=== PATIENT | male | born 1955 | race African-American/Black ===

== ENCOUNTER 2017-04-04 17:21 | Inpatient (IN) | payer OTHER ==
[~2017-04-04] VITALS: Ht 185.4 cm; Wt 90.7 kg
[2017-04-04 19:39] LABS: BASOPHILS % 0.5 % (0.0-2.0); EOSINOPHILS % 1.9 % (0.0-5.0); HEMATOCRIT. 35.4 % (42.0-52.0); LYMPHOCYTES % 29.8 % (20.0-50.0); MEAN CORPUSCULAR HEMOGLOBIN 32.7 pg (28.0-32.0); MEAN CORPUSCULAR VOLUME 96.6 fL (80.0-94.0); MEAN PLATELET VOLUME 9.1 fl (7.4-10.4); MONOCYTES % 13.7 % (2.0-8.0); NEUTROPHILS % 54.1 % (40.0-76.0); PLATELET 171 x1000/uL (130-400); RED BLOOD CELL COUNT 3.66 mill/uL (4.7-6.1); RED CELL DISTRIBUTION WIDTH 13.6 % (11.6-14.6)
[2017-04-04 19:45] LABS: CLARITY URINE CLEAR (CLEAR); COLOR URINE DARK YELLOW (YELLOW); GLUCOSE URINE NEGATIVE (NEGATIVE); KETONES URINE 1+ (NEGATIVE); LEUKOCYTE ESTERASE URINE TRACE (NEGATIVE); NITRITE URINE NEGATIVE (NEGATIVE); OCCULT BLOOD URINE NEGATIVE (NEGATIVE); PROTEIN URINE 2+ (NEGATIVE); SPECIFIC GRAVITY URINE 1.024 (1.005-1.030)
[2017-04-04 19:51] LABS: CARBON DIOXIDE 14 mEq/L (21-32); CHLORIDE 108 mEq/L (98-107); ETHANOL BLOOD < 10 mg/dL
[2017-04-04 19:53] LABS: TROPONIN I < 0.02 ng/mL (0.00-0.04)
[2017-04-04 20:14] LABS: *AMPHETAMINES SCREEN URINE NEGATIVE (NEGATIVE); *BARBITURATES SCREEN URINE NEGATIVE (NEGATIVE); *BENZODIAZEPINES SCREEN URINE NEGATIVE (NEGATIVE); *COCAINE SCREEN URINE NEGATIVE (NEGATIVE); CANNABINOID URINE SCREEN PRESUMTIVE POSITIVE (NEGATIVE); METHADONE URINE SCREEN NEGATIVE (NEGATIVE); OPIATES URINE SCREEN NEGATIVE (NEGATIVE); PHENCYCLIDINE URINE SCREEN NEGATIVE (NEGATIVE)
[2017-04-04 23:10] VITALS: BP 91/50
[2017-04-04] MEDS ORDERED: LISI-604 PO (23:55)
[2017-04-04] MEDS ORDERED: HYDR25TA PO (23:55)
[2017-04-04] MEDS ORDERED: SPIR25TA4 PO (23:55)
[2017-04-04] MEDS ORDERED: LABE100T PO (23:55)
[2017-04-05] MEDS ORDERED: LORAZEPAM 2MG/ML CPJ IV PRN (01:30)
[2017-04-05] MEDS ORDERED: ONDANSETRON HCL 4MG/2ML VIAL IV PRN (01:30)
[2017-04-05] MEDS: SODIUM CHLORIDE 0.9% 1,000 ML IV SCH ×3 (01:54→16:58)
[2017-04-05 04:00] VITALS: BP 96/74
[2017-04-05 06:16] LABS: HEMATOCRIT. 32.5 % (42.0-52.0); HEMOGLOBIN. 10.9 g/dL (14.0-18.0); MEAN CORPUSCULAR HEMOGLOBIN 32.7 pg (28.0-32.0); MEAN CORPUSCULAR VOLUME 97.3 fL (80.0-94.0); MEAN PLATELET VOLUME 9.7 fl (7.4-10.4); PLATELET 158 x1000/uL (130-400); RED BLOOD CELL COUNT 3.34 mill/uL (4.7-6.1); RED CELL DISTRIBUTION WIDTH 13.8 % (11.6-14.6)
[2017-04-05 06:21] LABS: CARBON DIOXIDE 12 mEq/L (21-32); CHLORIDE 110 mEq/L (98-107)
[2017-04-05 08:00] VITALS: BP 99/65
[2017-04-05] MEDS: LABETALOL HCL 100MG TABLET PO SCH ×2 (08:49→21:29)
[2017-04-05] MEDS ORDERED: HYDROCHLOROTHIAZIDE 25MG TABLET PO SCH (09:00)
[2017-04-05] MEDS ORDERED: SPIRONOLACTONE 25MG TABLET PO SCH (09:00)
[2017-04-05] MEDS ORDERED: LISINOPRIL 20MG TABLET PO SCH (09:00)
[2017-04-05 10:11] LABS: CREATINE KINASE 344 IU/L (39-308)
[2017-04-05 12:00] VITALS: BP 93/49
[2017-04-05 14:27] LABS: PLATELET ESTIMATE NORMAL
[2017-04-05 16:00] VITALS: BP 134/81
[2017-04-05 20:00] VITALS: BP 111/62
[2017-04-06] VITALS: BP 92/50
[2017-04-06] MEDS: SODIUM CHLORIDE 0.9% 1,000 ML IV SCH ×4 (00:48→20:48)
[2017-04-06 04:00] VITALS: BP 113/67
[2017-04-06 06:17] LABS: BASOPHILS % 0.2 % (0.0-2.0); EOSINOPHILS % 2.2 % (0.0-5.0); HEMOGLOBIN. 10.5 g/dL (14.0-18.0); LYMPHOCYTES % 35.6 % (20.0-50.0); MEAN CORPUSCULAR HEMOGLOBIN 32.9 pg (28.0-32.0); MEAN PLATELET VOLUME 9.6 fl (7.4-10.4); MONOCYTES % 14.6 % (2.0-8.0); NEUTROPHILS % 47.4 % (40.0-76.0); PLATELET 169 x1000/uL (130-400); RED CELL DISTRIBUTION WIDTH 14.1 % (11.6-14.6)
[2017-04-06 06:53] LABS: PHOSPHORUS 4.2 mg/dL (2.5-4.9)
[2017-04-06 08:00] VITALS: BP 116/72
[2017-04-06] MEDS: LABETALOL HCL 100MG TABLET PO SCH ×2 (08:53→20:45)
[2017-04-06 10:06] LABS: ANTI-NUCLEAR ANTIBODIES DIRECT Positive (Negative)
[2017-04-06] MEDS ORDERED: SODIUM POLYSTYRENE SULFONATE 15 G/60 ML BOT PO NR (10:13)
[2017-04-06] MEDS: CITRIC ACID/SODIUM CITRATE SOLN 30ML UDC PO SCH ×3 (10:28→17:12)
[2017-04-06 10:54] LABS: BG CARBOXYHEMOGLOBIN 0.2 % (0.5-1.5); BG DEOXYHEMOGLOBIN 2.9 % (0.0-5.0); BG FRACTION INSPIRED OXYGEN 21; BG HCO3 ACT 12.3 mmol/L (22.0-26.0); BG METHEMOGLOBIN 0.4 % (0.0-1.5); BG OXYGEN SATURATION 97.1 % (92.0-98.5); BG OXYHEMOGLOBIN 96.5 % (94.0-97.0); BG PH 7.328 (7.350-7.450); BG PO2 105.2 mmHg (75.0-100.0); BG SAMPLE SITE RIGHT BRACHIAL; BG TOTAL HEMOGLOBIN 11.2 g/dL (12.0-18.0); BG VENT MODE ROOM AIR
[2017-04-06 12:00] VITALS: BP 106/59
[2017-04-06 15:09] LABS: ALBUMIN 3.6 g/dL (2.9-4.4); ALPHA-1-GLOBULIN 0.2 g/dL (0.0-0.4); ALPHA-2-GLOBULIN 0.9 g/dL (0.4-1.0); BETA GLOBULIN 0.8 g/dL (0.7-1.3); GAMMA GLOBULINS 1.7 g/dL (0.4-1.8); GLOBULIN TOTAL 3.5 g/dL (2.2-3.9); M-SPIKE Not Observed g/dL (Not Observed); TOTAL PROTEIN SERUM 7.1 g/dL (6.0-8.5)
[2017-04-06 16:00] VITALS: BP 130/89
[2017-04-06 20:00] VITALS: BP 124/65
[2017-04-07] VITALS: BP 114/73
[2017-04-07 00:11] VITALS: BP 114/73
[2017-04-07 04:00] VITALS: BP 147/81
[2017-04-07] MEDS: SODIUM CHLORIDE 0.9% 1,000 ML IV SCH ×2 (06:22→08:28)
[2017-04-07 06:25] LABS: HEMATOCRIT. 30.9 % (42.0-52.0); HEMOGLOBIN. 10.4 g/dL (14.0-18.0); MEAN CORPUSCULAR HEMOGLOBIN 32.8 pg (28.0-32.0); MEAN CORPUSCULAR VOLUME 96.9 fL (80.0-94.0); MEAN PLATELET VOLUME 9.4 fl (7.4-10.4); PLATELET 186 x1000/uL (130-400); RED BLOOD CELL COUNT 3.18 mill/uL (4.7-6.1); RED CELL DISTRIBUTION WIDTH 14.1 % (11.6-14.6)
[2017-04-07 07:13] LABS: PHOSPHORUS 3.4 mg/dL (2.5-4.9)
[2017-04-07 08:00] VITALS: BP 154/107
[2017-04-07] MEDS: CITRIC ACID/SODIUM CITRATE SOLN 30ML UDC PO SCH ×2 (08:29→13:00)
[2017-04-07] MEDS: LABETALOL HCL 100MG TABLET PO SCH (08:29)
[2017-04-07] MEDS ORDERED: SODIUM POLYSTYRENE SULFONATE 15 G/60 ML BOT PO NR (12:00)
[2017-04-07 12:31] LABS: PLATELET ESTIMATE NORMAL
[2017-04-07] MEDS ORDERED: MAGNESIUM 1 G PREMIX 100 ML IV NR (14:00)
[2017-04-07 14:53] VITALS: BP 136/96
[2017-04-07 16:56] LABS: COMPLEMENT C3 106 mg/dL (82-167)
== END 2017-04-07 17:00 | disposition home or self-care (01) | DRG 460 ==
LOC: ER 19:25 → 7WST 19:55 → EDBEDREQ 20:01 → ENRESERV 22:33
PROVIDERS: ADMIT Hospitalist; ATTEND Hospitalist
DX: N17.0 Acute kidney failure with tubular necrosis (principal); E87.2 Acidosis; E86.9 Volume depletion, unspecified; G40.89 Other seizures; I10 Essential (primary) hypertension; B19.20 Unspecified viral hepatitis C without hepatic coma; D64.9 Anemia, unspecified; F17.200 Nicotine dependence, unspecified, uncomplicated; Z60.2 Problems related to living alone; F12.90 Cannabis use, unspecified, uncomplicated; R80.9 Proteinuria, unspecified; Z82.49 Family history of ischemic heart disease and other diseases of the circulatory system
CPT/HCPCS: 36415; 36600; 70450; 76770; 80048; 80053; 80305; 81001; 82375; 82550; 82805; 82962; 83735; 84100; 84155; 84165; 84484; 85025; 86038; 86160; 99285; A6261; G0482; J3475; J7030

== ENCOUNTER 2017-09-13 23:24 | Emergency (ER) | payer OTHER ==
[~2017-09-13] VITALS: Ht 188 cm; Wt 90.0 kg
[~2017-09-13 23:24] MED LIST: HYDR25TA PO; LABE100T PO; LISI-604 PO; SPIR25TA4 PO
[2017-09-14 04:00] VITALS: BP 108/70
[2017-09-14] MEDS ORDERED: FOLIC ACID 1 MG, THIAMINE HCL 100 MG, MVI, ADULT NO.1 10 ML in DEXTROSE 5% WATER 1,000 ML IV ONE ×4 (04:45)
[2017-09-14] MEDS ORDERED: KETOROLAC 30MG/ML VIAL IV ONE (04:45)
[2017-09-14 04:57] LABS: BASOPHILS % 0.9 % (0.0-2.0); EOSINOPHILS % 2.7 % (0.0-5.0); HEMATOCRIT. 35.7 % (42.0-52.0); HEMOGLOBIN. 11.8 g/dL (14.0-18.0); LYMPHOCYTES % 26.5 % (20.0-50.0); MEAN CORPUSCULAR HEMOGLOBIN 30.6 pg (28.0-32.0); MEAN CORPUSCULAR VOLUME 92.6 fL (80.0-94.0); MEAN PLATELET VOLUME 8.4 fl (7.4-10.4); NEUTROPHILS % 60.9 % (40.0-76.0); PLATELET 303 x1000/uL (130-400); RED BLOOD CELL COUNT 3.86 mill/uL (4.7-6.1); RED CELL DISTRIBUTION WIDTH 14.7 % (11.6-14.6)
[2017-09-14 05:09] LABS: CARBON DIOXIDE 21 mEq/L (21-32); CHLORIDE 112 mEq/L (98-107); ETHANOL BLOOD 67 mg/dL
== END 2017-09-14 07:39 | disposition home or self-care (01) ==
LOC: ER 23:25
DX: F10.129 Alcohol abuse with intoxication, unspecified (principal); I10 Essential (primary) hypertension; G89.29 Other chronic pain; M79.605 Pain in left leg; M79.604 Pain in right leg; Y90.3 Blood alcohol level of 60-79 mg/100 ml
CPT/HCPCS: 36415; 80048; 85025; 99284; G0482; J3411; J3490; J7070; Z7610

== ENCOUNTER 2018-01-20 19:41 | Emergency (ER) | payer OTHER ==
[~2018-01-20] VITALS: Ht 182.9 cm; Wt 95.3 kg
[2018-01-20] MEDS ORDERED: KETOROLAC 30MG/ML VIAL IV STA (20:15)
[2018-01-20] MEDS ORDERED: SODIUM CHLORIDE 0.9% 1,000 ML IV ONE (20:15)
[2018-01-20 20:50] LABS: BASOPHILS % 1.2 % (0.0-2.0); EOSINOPHILS % 2.5 % (0.0-5.0); HEMATOCRIT. 38.3 % (42.0-52.0); HEMOGLOBIN. 12.8 g/dL (14.0-18.0); LYMPHOCYTES % 34.7 % (20.0-50.0); MEAN CORPUSCULAR VOLUME 96.1 fL (80.0-94.0); MEAN PLATELET VOLUME 8.6 fl (7.4-10.4); MONOCYTES % 16.1 % (2.0-8.0); NEUTROPHILS % 45.5 % (40.0-76.0); PLATELET 218 x1000/uL (130-400); RED BLOOD CELL COUNT 3.99 mill/uL (4.7-6.1); RED CELL DISTRIBUTION WIDTH 15.7 % (11.6-14.6)
[2018-01-20 20:52] LABS: CHLORIDE 111 mEq/L (98-107)
[2018-01-20 20:56] LABS: ETHANOL BLOOD 265 mg/dL
[2018-01-20] MEDS ORDERED: CLONIDINE 0.1MG TABLET PO ONE (21:00)
[2018-01-20 21:09] LABS: CLARITY URINE CLEAR (CLEAR); COLOR URINE YELLOW (YELLOW); KETONES URINE NEGATIVE (NEGATIVE); LEUKOCYTE ESTERASE URINE NEGATIVE (NEGATIVE); NITRITE URINE NEGATIVE (NEGATIVE); OCCULT BLOOD URINE 1+ (NEGATIVE); PH URINE 5.5 (4.5-8.0); PROTEIN URINE 2+ (NEGATIVE); SPECIFIC GRAVITY URINE 1.009 (1.005-1.030); UROBILINOGEN URINE 0.2 E.U./dL (0.2-1.0)
[2018-01-20 21:30] LABS: *AMPHETAMINES SCREEN URINE NEGATIVE (NEGATIVE); *BARBITURATES SCREEN URINE NEGATIVE (NEGATIVE); *BENZODIAZEPINES SCREEN URINE NEGATIVE (NEGATIVE); *COCAINE SCREEN URINE NEGATIVE (NEGATIVE); METHADONE URINE SCREEN NEGATIVE (NEGATIVE); OPIATES URINE SCREEN NEGATIVE (NEGATIVE); PHENCYCLIDINE URINE SCREEN PRESUMTIVE POSITIVE (NEGATIVE)
[2018-01-20 21:31] LABS: CANNABINOID URINE SCREEN PRESUMTIVE POSITIVE (NEGATIVE)
[2018-01-21 00:47] VITALS: BP 141/72
== END 2018-01-21 00:50 | disposition home or self-care (01) ==
LOC: ER 19:41
DX: T40.7X1A Poisoning by cannabis (derivatives), accidental (unintentional), initial encounter (principal); T40.991A Poisoning by other psychodysleptics [hallucinogens], accidental (unintentional), initial encounter; R40.4 Transient alteration of awareness; M13.862 Other specified arthritis, left knee; M13.861 Other specified arthritis, right knee; F10.129 Alcohol abuse with intoxication, unspecified; M19.90 Unspecified osteoarthritis, unspecified site; R94.31 Abnormal electrocardiogram [ECG] [EKG]; F12.10 Cannabis abuse, uncomplicated; Y90.8 Blood alcohol level of 240 mg/100 ml or more; M85.80 Other specified disorders of bone density and structure, unspecified site; G89.29 Other chronic pain; D64.9 Anemia, unspecified; F17.200 Nicotine dependence, unspecified, uncomplicated; Z59.0 Homelessness; Y92.488 Other paved roadways as the place of occurrence of the external cause
CPT/HCPCS: 36415; 71045; 73560; 80053; 80305; 81003; 83690; 84550; 85025; 93005; 96361; 96374; 99285; G0482; J1885; J7030; Z7610

== ENCOUNTER 2018-03-25 15:52 | Emergency (ER) | payer OTHER ==
[~2018-03-25] VITALS: Ht 170.2 cm; Wt 100.0 kg
[~2018-03-25 15:52] MED LIST changes: -HYDR25TA PO; -LABE100T PO; -SPIR25TA4 PO; +SPIR25TA6 PO
[2018-03-26 09:55] VITALS: BP 159/93
== END 2018-03-26 11:51 | disposition home or self-care (01) ==
LOC: ER 15:52
DX: S60.562A Insect bite (nonvenomous) of left hand, initial encounter (principal); S60.561A Insect bite (nonvenomous) of right hand, initial encounter; S10.86XA Insect bite of other specified part of neck, initial encounter; S90.869A Insect bite (nonvenomous), unspecified foot, initial encounter; I10 Essential (primary) hypertension; F17.200 Nicotine dependence, unspecified, uncomplicated; F12.10 Cannabis abuse, uncomplicated; W57.XXXA Bitten or stung by nonvenomous insect and other nonvenomous arthropods, initial encounter; Y93.89 Activity, other specified; Y92.89 Other specified places as the place of occurrence of the external cause; Y99.8 Other external cause status
CPT/HCPCS: 99283

== ENCOUNTER 2018-04-06 05:46 | Emergency (ER) | payer OTHER ==
[~2018-04-06] VITALS: Ht 185.4 cm; Wt 113.0 kg
[2018-04-06 05:53] VITALS: BP 168/90
[2018-04-06] MEDS ORDERED: DIPHENHYDRAMINE 25MG CAPSULE PO ONE (15:30)
[2018-04-06] MEDS ORDERED: PREDNISONE 20MG TABLET PO ONE (15:30)
== END 2018-04-06 15:45 | disposition home or self-care (01) ==
LOC: ER 05:46
DX: S80.862A Insect bite (nonvenomous), left lower leg, initial encounter (principal); S80.861A Insect bite (nonvenomous), right lower leg, initial encounter; S40.862A Insect bite (nonvenomous) of left upper arm, initial encounter; S40.861A Insect bite (nonvenomous) of right upper arm, initial encounter; L30.8 Other specified dermatitis; W57.XXXA Bitten or stung by nonvenomous insect and other nonvenomous arthropods, initial encounter; Y93.89 Activity, other specified; Y92.092 Bedroom in other non-institutional residence as the place of occurrence of the external cause; G89.29 Other chronic pain; M25.562 Pain in left knee; M25.561 Pain in right knee; I10 Essential (primary) hypertension; F17.210 Nicotine dependence, cigarettes, uncomplicated; Z87.828 Personal history of other (healed) physical injury and trauma
CPT/HCPCS: 99283; J7512; Q0163

== ENCOUNTER 2018-04-16 15:45 | Emergency (ER) | payer OTHER ==
[~2018-04-16] VITALS: Ht 185.4 cm; Wt 100.0 kg
[2018-04-16 15:53] VITALS: BP 146/87
[2018-04-16] MEDS ORDERED: DEXAMETHASONE 10 MG/ML VIAL IM ONE (19:15)
[2018-04-16] MEDS ORDERED: DIPHENHYDRAMINE 25MG CAPSULE PO ONE (19:30)
[2018-04-16] MEDS ORDERED: FAMOTIDINE 20MG TABLET PO ONE (19:45)
[2018-04-16] MEDS ORDERED: FAMOTIDINE 20MG TABLET PO SCH (21:00)
== END 2018-04-16 21:51 | disposition home or self-care (01) ==
LOC: ER 15:45
DX: S60.562A Insect bite (nonvenomous) of left hand, initial encounter (principal); S60.561A Insect bite (nonvenomous) of right hand, initial encounter; S30.861A Insect bite (nonvenomous) of abdominal wall, initial encounter; S20.362A Insect bite (nonvenomous) of left front wall of thorax, initial encounter; S20.361A Insect bite (nonvenomous) of right front wall of thorax, initial encounter; W57.XXXA Bitten or stung by nonvenomous insect and other nonvenomous arthropods, initial encounter; L50.9 Urticaria, unspecified; I10 Essential (primary) hypertension; F17.200 Nicotine dependence, unspecified, uncomplicated; Y93.89 Activity, other specified; Y92.89 Other specified places as the place of occurrence of the external cause; Y99.8 Other external cause status
CPT/HCPCS: 96372; 99283; J1100; Q0163

== ENCOUNTER 2018-05-15 13:29 | Emergency (ER) | payer OTHER ==
[~2018-05-15] VITALS: Ht 185.4 cm; Wt 100.0 kg
[2018-05-15 14:15] VITALS: BP 140/76
== END 2018-05-15 15:50 | disposition home or self-care (01) ==
LOC: ER 13:29
DX: T14.8XXA Other injury of unspecified body region, initial encounter (principal); I10 Essential (primary) hypertension; F17.200 Nicotine dependence, unspecified, uncomplicated; Z59.0 Homelessness; W57.XXXA Bitten or stung by nonvenomous insect and other nonvenomous arthropods, initial encounter; Y93.9 Activity, unspecified; Y92.89 Other specified places as the place of occurrence of the external cause
CPT/HCPCS: 99282

== ENCOUNTER 2018-05-28 06:36 | Emergency (ER) | payer OTHER ==
[~2018-05-28] VITALS: Ht 185.4 cm; Wt 100.0 kg
[2018-05-28] MEDS ORDERED: FLUORESCEIN SODIUM 1MG/STRIP OP ONE (07:00)
[2018-05-28] MEDS ORDERED: TETRACAINE 0.5% OPHTH DROPS 4ML OP ONE (07:00)
[2018-05-28] MEDS ORDERED: KETOROLAC 60MG/2ML VIAL IM ONE (07:00)
[2018-05-28 09:33] VITALS: BP 145/90
== END 2018-05-28 09:36 | disposition home or self-care (01) ==
LOC: ER 07:21
DX: S05.02XA Injury of conjunctiva and corneal abrasion without foreign body, left eye, initial encounter (principal); M25.562 Pain in left knee; M25.561 Pain in right knee; I10 Essential (primary) hypertension; F17.200 Nicotine dependence, unspecified, uncomplicated; X58.XXXA Exposure to other specified factors, initial encounter; Y93.89 Activity, other specified; Y92.89 Other specified places as the place of occurrence of the external cause; Y99.8 Other external cause status; Z98.890 Other specified postprocedural states
CPT/HCPCS: 96372; 99283; J1885

== ENCOUNTER 2018-06-22 22:54 | Emergency (ER) | payer OTHER ==
[~2018-06-22] VITALS: Ht 190.5 cm; Wt 100.0 kg
[2018-06-23] MEDS ORDERED: IBUPROFEN 800MG TABLET PO ONE (00:15)
[2018-06-23] MEDS ORDERED: TETANUS, DIPHTHERIA, PERTUSSIS VAC/PF 0.5ML (>7YR OLD) IM ONE (00:15)
[2018-06-23] MEDS ORDERED: CEFAZOLIN 1000MG PREMIX 50 ML IV ONE (00:30)
[2018-06-23] MEDS ORDERED: BACITRACIN ZINC OINT UDPKT TOP ONE ×2 (01:15→01:45)
[2018-06-23] MEDS ORDERED: LIDOCAINE HCL/PF 1% 10 MG/ML 5ML VIAL IJ ONE (01:45)
[2018-06-23 02:45] VITALS: BP 144/88
== END 2018-06-23 02:49 | disposition home or self-care (01) ==
LOC: ER 23:10
DX: S61.412A Laceration without foreign body of left hand, initial encounter (principal); I10 Essential (primary) hypertension; Z79.899 Other long term (current) drug therapy; W26.8XXA Contact with other sharp object(s), not elsewhere classified, initial encounter; Y93.89 Activity, other specified; Y92.89 Other specified places as the place of occurrence of the external cause; Y99.8 Other external cause status
CPT/HCPCS: 12004; 73130; 90471; 90715; 96365; 99284; A4217; J0690; J3490; Z7610

== ENCOUNTER 2018-06-24 15:41 | Emergency (ER) | payer OTHER ==
[~2018-06-24] VITALS: Ht 175.3 cm; Wt 110.0 kg
[2018-06-24] MEDS ORDERED: KETOROLAC 60MG/2ML VIAL IM ONE (20:30)
[2018-06-24 20:43] VITALS: BP 124/80
== END 2018-06-24 20:43 | disposition home or self-care (01) ==
LOC: ER 16:15
DX: M25.511 Pain in right shoulder (principal); M25.561 Pain in right knee; I10 Essential (primary) hypertension; F99 Mental disorder, not otherwise specified; Z59.0 Homelessness; W01.0XXA Fall on same level from slipping, tripping and stumbling without subsequent striking against object, initial encounter; Y93.89 Activity, other specified; Y92.488 Other paved roadways as the place of occurrence of the external cause
CPT/HCPCS: 96372; 99283; J1885

== ENCOUNTER 2018-08-26 15:53 | Inpatient (IN) | payer OTHER ==
[~2018-08-26] VITALS: Ht 172.7 cm; Wt 99.3 kg
[2018-08-26 17:59] LABS: BASOPHILS % 0.6 % (0.0-2.0); EOSINOPHILS % 1.7 % (0.0-5.0); HEMATOCRIT. 36.9 % (42.0-52.0); HEMOGLOBIN. 12.7 g/dL (14.0-18.0); LYMPHOCYTES % 35.4 % (20.0-50.0); MEAN CORPUSCULAR HEMOGLOBIN 33.5 pg (28.0-32.0); MEAN CORPUSCULAR VOLUME 97.2 fL (80.0-94.0); MEAN PLATELET VOLUME 9.5 fl (7.4-10.4); MONOCYTES % 14.3 % (2.0-8.0); PLATELET 137 x1000/uL (130-400); RED CELL DISTRIBUTION WIDTH 14.2 % (11.6-14.6)
[2018-08-26 18:05] LABS: CHLORIDE 100 mEq/L (98-107)
[2018-08-26 18:18] LABS: CLARITY URINE CLEAR (CLEAR); COLOR URINE DARK YELLOW (YELLOW); KETONES URINE 2+ (NEGATIVE); LEUKOCYTE ESTERASE URINE NEGATIVE (NEGATIVE); NITRITE URINE NEGATIVE (NEGATIVE); OCCULT BLOOD URINE 2+ (NEGATIVE); PROTEIN URINE 4+ (NEGATIVE); SPECIFIC GRAVITY URINE 1.023 (1.005-1.030)
[2018-08-26] MEDS ORDERED: LABETALOL HCL 20MG/4ML CARPUJECT IV ONE (19:00)
[2018-08-26] MEDS ORDERED: ASPIRIN 81MG TABLET PO ONE (19:00)
[2018-08-26] MEDS ORDERED: HYDROCODONE/ACETAMINOPHEN 5/325MG TABLET PO PRN (20:45)
[2018-08-26] MEDS ORDERED: IPRATROPIUM/ALBUTEROL 0.5-3(2.5)MG/3ML NEB INH PRN (20:45)
[2018-08-26] MEDS ORDERED: MAGNESIUM/ALUMINUM HYDROXIDE/SIMETHICONE 30ML UDC PO PRN (20:45)
[2018-08-26] MEDS ORDERED: ONDANSETRON HCL 4MG/2ML INJ IV PRN (20:45)
[2018-08-26] MEDS ORDERED: ACETAMINOPHEN 325MG TABLET PO PRN (20:45)
[2018-08-26] MEDS ORDERED: METO-396 PO (23:25)
[2018-08-26] MEDS ORDERED: HYDR12.529 MT (23:25)
[2018-08-26] MEDS ORDERED: INFLUENZA VIRUS VACCINE(AFLURIA) 0.5ML SYR IM ONE (23:30)
[2018-08-26] MEDS: NIFEDIPINE XL 60MG TAB PO SCH (23:38)
[2018-08-26] MEDS: CLONIDINE 0.1MG TABLET PO PRN (23:38)
[2018-08-26 23:52] VITALS: BP 173/94
[2018-08-27 01:24] LABS: CHLORIDE 103 mEq/L (98-107)
[2018-08-27 01:27] LABS: ETHANOL BLOOD < 10 mg/dL
[2018-08-27 01:32] LABS: CREATINE KINASE 870 IU/L (39-308)
[2018-08-27 01:34] LABS: CREATINE KINASE MB FRACTION 4.2 ng/mL (0.5-3.6)
[2018-08-27 04:00] VITALS: BP 142/89
[2018-08-27 06:23] LABS: BASOPHILS % 0.4 % (0.0-2.0); EOSINOPHILS % 2.7 % (0.0-5.0); HEMATOCRIT. 35.9 % (42.0-52.0); HEMOGLOBIN. 12.1 g/dL (14.0-18.0); LYMPHOCYTES % 26.6 % (20.0-50.0); MEAN CORPUSCULAR VOLUME 97.7 fL (80.0-94.0); MEAN PLATELET VOLUME 9.7 fl (7.4-10.4); NEUTROPHILS % 57.3 % (40.0-76.0); PLATELET 120 x1000/uL (130-400); RED BLOOD CELL COUNT 3.68 mill/uL (4.7-6.1); RED CELL DISTRIBUTION WIDTH 13.8 % (11.6-14.6)
[2018-08-27 06:58] LABS: HDL CHOLESTEROL 99 mg/dL (40-59); LDL CHOLESTEROL 47 mg/dL (5-100)
[2018-08-27 07:00] LABS: CREATINE KINASE 750 IU/L (39-308)
[2018-08-27 07:02] LABS: CREATINE KINASE MB FRACTION 3.7 ng/mL (0.5-3.6)
[2018-08-27 08:00] VITALS: BP 141/51
[2018-08-27] MEDS: NIFEDIPINE XL 60MG TAB PO SCH (09:16)
[2018-08-27 12:00] VITALS: BP 153/92
[2018-08-27] MEDS: HYDROCODONE/ACETAMINOPHEN 10/325MG TABLET PO PRN ×3 (14:26→23:35)
[2018-08-27 14:31] LABS: *AMPHETAMINES SCREEN URINE NEGATIVE (NEGATIVE); *BARBITURATES SCREEN URINE NEGATIVE (NEGATIVE); *BENZODIAZEPINES SCREEN URINE NEGATIVE (NEGATIVE)
[2018-08-27 14:32] LABS: *COCAINE SCREEN URINE PRESUMTIVE POSITIVE (NEGATIVE); CANNABINOID URINE SCREEN PRESUMTIVE POSITIVE (NEGATIVE); METHADONE URINE SCREEN NEGATIVE (NEGATIVE); OPIATES URINE SCREEN NEGATIVE (NEGATIVE); PHENCYCLIDINE URINE SCREEN PRESUMTIVE POSITIVE (NEGATIVE)
[2018-08-27] MEDS: CLOTRIMAZOLE 1% CREAM 30GM TOP SCH (15:00)
[2018-08-27 16:00] VITALS: BP 148/87
[2018-08-27 20:00] VITALS: BP 140/84
[2018-08-28] VITALS: BP 159/93
[2018-08-28 04:00] VITALS: BP 155/98
[2018-08-28 06:53] LABS: BASOPHILS % 0.5 % (0.0-2.0); EOSINOPHILS % 3.9 % (0.0-5.0); HEMATOCRIT. 35.2 % (42.0-52.0); HEMOGLOBIN. 11.9 g/dL (14.0-18.0); LYMPHOCYTES % 22.7 % (20.0-50.0); MEAN CORPUSCULAR HEMOGLOBIN 33.2 pg (28.0-32.0); MEAN CORPUSCULAR VOLUME 97.9 fL (80.0-94.0); MEAN PLATELET VOLUME 9.6 fl (7.4-10.4); MONOCYTES % 12.9 % (2.0-8.0); PLATELET 122 x1000/uL (130-400); RED BLOOD CELL COUNT 3.59 mill/uL (4.7-6.1); RED CELL DISTRIBUTION WIDTH 13.6 % (11.6-14.6)
[2018-08-28 07:07] LABS: CHLORIDE 103 mEq/L (98-107)
[2018-08-28 08:20] VITALS: BP 162/100
[2018-08-28] MEDS: NIFEDIPINE XL 60MG TAB PO SCH (08:30)
[2018-08-28] MEDS: CLOTRIMAZOLE 1% CREAM 30GM TOP SCH (08:31)
[2018-08-28] MEDS: HYDROCODONE/ACETAMINOPHEN 10/325MG TABLET PO PRN (08:31)
[2018-08-28 12:00] VITALS: BP 168/101
[2018-08-28] MEDS: GABAPENTIN 300MG CAPSULE PO SCH ×2 (12:49→20:40)
[2018-08-28] MEDS: CLONIDINE 0.1MG TABLET PO PRN (13:22)
[2018-08-28 16:14] VITALS: BP 158/102
[2018-08-28] MEDS ORDERED: LOSARTAN POTASSIUM 50 MG TABLET PO SCH (17:00)
[2018-08-28 20:00] VITALS: BP 154/91
[2018-08-28] MEDS ORDERED: NIFEDIPINE XL 60MG TAB PO SCH (21:00)
== END 2018-08-28 21:00 | DRG 199 ==
LOC: ER 16:02 → 6WST 20:35 → ENRESERV 21:34 → 3WST 08-27 12:40 → 6WST 08-27 12:57
PROVIDERS: ADMIT Internal Medicine; ATTEND Internal Medicine
DX: I16.0 Hypertensive urgency (principal); M62.82 Rhabdomyolysis; G62.9 Polyneuropathy, unspecified; E44.1 Mild protein-calorie malnutrition; E87.1 Hypo-osmolality and hyponatremia; D64.9 Anemia, unspecified; F19.10 Other psychoactive substance abuse, uncomplicated; M25.561 Pain in right knee; R74.0 Nonspecific elevation of levels of transaminase and lactic acid dehydrogenase [LDH]; D72.819 Decreased white blood cell count, unspecified; M25.562 Pain in left knee; F14.10 Cocaine abuse, uncomplicated; F12.10 Cannabis abuse, uncomplicated; B35.3 Tinea pedis; F10.10 Alcohol abuse, uncomplicated; I10 Essential (primary) hypertension; I73.9 Peripheral vascular disease, unspecified; Z23 Encounter for immunization; Z59.0 Homelessness; Z91.14 Patient's other noncompliance with medication regimen; Z72.0 Tobacco use; Z68.33 Body mass index [BMI] 33.0-33.9, adult; Z79.899 Other long term (current) drug therapy; Z71.51 Drug abuse counseling and surveillance of drug abuser
CPT/HCPCS: 36415; 71045; 80048; 80061; 80305; 82550; 82553; 83036; 83735; 83880; 84443; 84484; 90686; 93005; 93970; 96374; 97116; 97162; 99285; G0482; J3490

== ENCOUNTER 2018-11-25 01:04 | Emergency (ER) | payer OTHER ==
[~2018-11-25] VITALS: Ht 188 cm; Wt 125.0 kg
[~2018-11-25 01:04] MED LIST changes: +HYDR12.529 MT; +METO-396 PO
[2018-11-25] MEDS ORDERED: LIDOCAINE HCL/PF 1% 10 MG/ML 5ML VIAL IJ ONE (02:00)
[2018-11-25] MEDS ORDERED: BACITRACIN ZINC OINT UDPKT TOP ONE (02:00)
[2018-11-25] MEDS ORDERED: HYDROCODONE/ACETAMINOPHEN 5/325MG TABLET PO ONE ×2 (02:00→05:15)
[2018-11-25] MEDS ORDERED: TETANUS, DIPHTHERIA, PERTUSSIS VAC/PF 0.5ML (>7YR OLD) IM ONE (02:00)
[2018-11-25] MEDS ORDERED: FLUORESCEIN SODIUM 1MG/STRIP OP ONE (04:30)
[2018-11-25] MEDS ORDERED: CEPHALEXIN 250MG CAPSULE PO ONE (05:15)
[2018-11-25 06:00] LABS: BASOPHILS % 1.3 % (0.0-2.0); EOSINOPHILS % 0.6 % (0.0-5.0); HEMATOCRIT. 34.1 % (42.0-52.0); HEMOGLOBIN. 11.4 g/dL (14.0-18.0); LYMPHOCYTES % 20.6 % (20.0-50.0); MEAN CORPUSCULAR HEMOGLOBIN 32.3 pg (28.0-32.0); MEAN CORPUSCULAR VOLUME 96.4 fL (80.0-94.0); MEAN PLATELET VOLUME 8.8 fl (7.4-10.4); MONOCYTES % 7.1 % (2.0-8.0); NEUTROPHILS % 70.4 % (40.0-76.0); PLATELET 231 x1000/uL (130-400); RED BLOOD CELL COUNT 3.54 mill/uL (4.7-6.1)
[2018-11-25 06:07] LABS: CHLORIDE 113 mEq/L (98-107)
[2018-11-25 06:10] LABS: ETHANOL BLOOD 204 mg/dL
[2018-11-25 08:10] LABS: *AMPHETAMINES SCREEN URINE NEGATIVE (NEGATIVE); *BARBITURATES SCREEN URINE NEGATIVE (NEGATIVE); *BENZODIAZEPINES SCREEN URINE NEGATIVE (NEGATIVE)
[2018-11-25 08:11] LABS: *COCAINE SCREEN URINE NEGATIVE (NEGATIVE); CANNABINOID URINE SCREEN PRESUMTIVE POSITIVE (NEGATIVE); METHADONE URINE SCREEN NEGATIVE (NEGATIVE); OPIATES URINE SCREEN PRESUMTIVE POSITIVE (NEGATIVE); PHENCYCLIDINE URINE SCREEN PRESUMTIVE POSITIVE (NEGATIVE)
[2018-11-25 09:01] VITALS: BP 110/78
== END 2018-11-25 09:06 | disposition home or self-care (01) ==
LOC: ER 01:04
DX: S02.19XA Other fracture of base of skull, initial encounter for closed fracture (principal); S02.81XA Fracture of other specified skull and facial bones, right side, initial encounter for closed fracture; I10 Essential (primary) hypertension; F31.9 Bipolar disorder, unspecified; F17.210 Nicotine dependence, cigarettes, uncomplicated; Z98.890 Other specified postprocedural states; Z87.828 Personal history of other (healed) physical injury and trauma; Z59.0 Homelessness; Z99.3 Dependence on wheelchair; W05.0XXA Fall from non-moving wheelchair, initial encounter; Y93.89 Activity, other specified; Y92.488 Other paved roadways as the place of occurrence of the external cause
CPT/HCPCS: 36415; 70486; 80048; 80305; 80307; 80320; 80329; 90471; 90715; 99284; J3490; G0480

== ENCOUNTER 2020-02-02 19:07 | Emergency (ER) | payer OTHER ==
[~2020-02-02] VITALS: Ht 177.8 cm; Wt 91.0 kg
[2020-02-02 20:14] LABS: CLARITY URINE CLEAR (CLEAR); COLOR URINE YELLOW (YELLOW); KETONES URINE NEGATIVE (NEGATIVE); LEUKOCYTE ESTERASE URINE NEGATIVE (NEGATIVE); NITRITE URINE NEGATIVE (NEGATIVE); OCCULT BLOOD URINE NEGATIVE (NEGATIVE); PH URINE 5.5 (4.5-8.0); PROTEIN URINE 1+ (NEGATIVE); SPECIFIC GRAVITY URINE 1.006 (1.005-1.030); UROBILINOGEN URINE 0.2 E.U./dL (0.2-1.0)
[2020-02-02 20:19] LABS: BASOPHILS % 0.7 % (0.0-2.0); HEMATOCRIT. 35.9 % (42.0-52.0); HEMOGLOBIN. 11.7 g/dL (14.0-18.0); LYMPHOCYTES % 42.9 % (20.0-50.0); MEAN CORPUSCULAR HEMOGLOBIN 29.8 pg (28.0-32.0); MEAN CORPUSCULAR VOLUME 91.6 fL (80.0-94.0); MEAN PLATELET VOLUME 9.1 fl (7.4-10.4); NEUTROPHILS % 42.4 % (40.0-76.0); PLATELET 199 x1000/uL (130-400); RED BLOOD CELL COUNT 3.92 mill/uL (4.7-6.1); RED CELL DISTRIBUTION WIDTH 15.2 % (11.6-14.6)
[2020-02-02 20:33] LABS: CHLORIDE 115 mEq/L (98-107)
[2020-02-02 20:37] LABS: ETHANOL BLOOD 165 mg/dL
[2020-02-02 20:41] LABS: *AMPHETAMINES SCREEN URINE NEGATIVE (NEGATIVE); *BARBITURATES SCREEN URINE NEGATIVE (NEGATIVE); *BENZODIAZEPINES SCREEN URINE NEGATIVE (NEGATIVE)
[2020-02-02 20:42] LABS: *COCAINE SCREEN URINE NEGATIVE (NEGATIVE); METHADONE URINE SCREEN NEGATIVE (NEGATIVE)
[2020-02-02 20:44] LABS: CANNABINOID URINE SCREEN NEGATIVE (NEGATIVE); OPIATES URINE SCREEN NEGATIVE (NEGATIVE); PHENCYCLIDINE URINE SCREEN PRESUMTIVE POSITIVE (NEGATIVE)
[2020-02-03 09:50] VITALS: BP 155/93
== END 2020-02-03 12:10 | disposition home or self-care (01) ==
LOC: EDBD 19:07 → EDUNIT# 19:07 → ER 19:07
DX: T51.0X1A Toxic effect of ethanol, accidental (unintentional), initial encounter (principal); T40.991A Poisoning by other psychodysleptics [hallucinogens], accidental (unintentional), initial encounter; Y92.89 Other specified places as the place of occurrence of the external cause; G93.40 Encephalopathy, unspecified
CPT/HCPCS: 36415; 80053; 80305; 80307; 80320; 80329; 81003; 85025; 99285; G0480

== ENCOUNTER 2020-02-03 14:29 | Emergency (ER) | payer OTHER ==
[~2020-02-03] VITALS: Ht 182.9 cm; Wt 82.0 kg
[2020-02-03 14:35] VITALS: BP 178/80
[2020-02-03] MEDS ORDERED: ACETAMINOPHEN 325MG TABLET PO ONE (15:00)
== END 2020-02-03 20:12 | disposition home or self-care (01) ==
LOC: ER 14:29
DX: M79.604 Pain in right leg (principal); M25.552 Pain in left hip; M25.551 Pain in right hip; R53.1 Weakness; Z59.0 Homelessness; J45.909 Unspecified asthma, uncomplicated; E11.9 Type 2 diabetes mellitus without complications; I10 Essential (primary) hypertension; F10.10 Alcohol abuse, uncomplicated; Z79.899 Other long term (current) drug therapy; Z86.19 Personal history of other infectious and parasitic diseases; W01.0XXA Fall on same level from slipping, tripping and stumbling without subsequent striking against object, initial encounter; Y93.01 Activity, walking, marching and hiking; Y92.89 Other specified places as the place of occurrence of the external cause; Y99.8 Other external cause status; Y90.9 Presence of alcohol in blood, level not specified
CPT/HCPCS: 73521; 73590; 93971; 99284

== ENCOUNTER 2020-02-04 14:45 | Emergency (ER) | payer OTHER ==
[~2020-02-04] VITALS: Ht 182.9 cm; Wt 91.0 kg
[2020-02-05 07:30] VITALS: BP 155/92
== END 2020-02-05 07:51 | disposition home or self-care (01) ==
LOC: ER 14:45
DX: G89.29 Other chronic pain (principal); M25.562 Pain in left knee; M25.561 Pain in right knee; J45.909 Unspecified asthma, uncomplicated; I10 Essential (primary) hypertension; E11.9 Type 2 diabetes mellitus without complications; F17.200 Nicotine dependence, unspecified, uncomplicated; Z59.0 Homelessness; Z79.899 Other long term (current) drug therapy; Z86.19 Personal history of other infectious and parasitic diseases
CPT/HCPCS: 99285

== ENCOUNTER 2020-02-11 12:49 | Emergency (ER) | payer OTHER ==
[~2020-02-11] VITALS: Ht 185.4 cm; Wt 85.0 kg
[2020-02-11] MEDS ORDERED: CEPHALEXIN 250MG CAPSULE PO ONE (13:45)
[2020-02-11 14:16] LABS: CLARITY URINE CLEAR (CLEAR); COLOR URINE YELLOW (YELLOW); KETONES URINE TRACE (NEGATIVE); LEUKOCYTE ESTERASE URINE 1+ (NEGATIVE); NITRITE URINE NEGATIVE (NEGATIVE); OCCULT BLOOD URINE TRACE (NEGATIVE); PH URINE 5.5 (4.5-8.0); PROTEIN URINE 3+ (NEGATIVE); SPECIFIC GRAVITY URINE 1.019 (1.005-1.030)
[2020-02-11 14:41] LABS: *COCAINE SCREEN URINE NEGATIVE (NEGATIVE)
[2020-02-11 14:42] LABS: *AMPHETAMINES SCREEN URINE NEGATIVE (NEGATIVE); CANNABINOID URINE SCREEN PRESUMTIVE POSITIVE (NEGATIVE); METHADONE URINE SCREEN NEGATIVE (NEGATIVE); OPIATES URINE SCREEN NEGATIVE (NEGATIVE); PHENCYCLIDINE URINE SCREEN PRESUMTIVE POSITIVE (NEGATIVE)
[2020-02-11 14:44] LABS: *BARBITURATES SCREEN URINE NEGATIVE (NEGATIVE); *BENZODIAZEPINES SCREEN URINE NEGATIVE (NEGATIVE)
[2020-02-11 14:51] LABS: CHLORIDE 109 mEq/L (98-107)
[2020-02-11 14:54] LABS: ETHANOL BLOOD 13 mg/dL
[2020-02-11 14:56] LABS: BASOPHILS % 0.9 % (0.0-2.0); EOSINOPHILS % 2.3 % (0.0-5.0); HEMATOCRIT. 33.8 % (42.0-52.0); HEMOGLOBIN. 11.5 g/dL (14.0-18.0); LYMPHOCYTES % 25.4 % (20.0-50.0); MEAN CORPUSCULAR HEMOGLOBIN 30.8 pg (28.0-32.0); MONOCYTES % 9.4 % (2.0-8.0); PLATELET 243 x1000/uL (130-400); RED BLOOD CELL COUNT 3.72 mill/uL (4.7-6.1); RED CELL DISTRIBUTION WIDTH 15.2 % (11.6-14.6)
[2020-02-11 15:59] VITALS: BP 180/90
== END 2020-02-11 16:02 | disposition home or self-care (01) ==
LOC: ER 12:49
DX: N30.00 Acute cystitis without hematuria (principal); T40.991A Poisoning by other psychodysleptics [hallucinogens], accidental (unintentional), initial encounter; I10 Essential (primary) hypertension; J45.909 Unspecified asthma, uncomplicated; E11.9 Type 2 diabetes mellitus without complications; Z59.0 Homelessness; Z86.19 Personal history of other infectious and parasitic diseases; Y92.89 Other specified places as the place of occurrence of the external cause
CPT/HCPCS: 36415; 80053; 80305; 80307; 80320; 80329; 81003; 85025; 87077; 87186; 99283; G0480

== ENCOUNTER 2020-02-29 17:12 | Emergency (ER) | payer OTHER ==
[~2020-02-29] VITALS: Ht 185.4 cm; Wt 100.0 kg
[2020-02-29] MEDS ORDERED: ACETAMINOPHEN 325MG TABLET PO ONE (18:45)
[2020-03-01 08:22] VITALS: BP 170/89
== END 2020-03-01 09:58 | disposition left against medical advice (07) ==
LOC: ER 17:12
DX: M54.5 Low back pain (principal); I10 Essential (primary) hypertension; J45.909 Unspecified asthma, uncomplicated; E11.9 Type 2 diabetes mellitus without complications; Z59.0 Homelessness; Z86.19 Personal history of other infectious and parasitic diseases; Z88.8 Allergy status to other drugs, medicaments and biological substances
CPT/HCPCS: 99283